=== PATIENT | male | born 1970 | race Asian ===

== ENCOUNTER 2017-12-16 11:30 | Day surgery (SDC) | payer MEDICAID ==
[~2017-12-16] VITALS: Ht 157.5 cm; Wt 77.1 kg
[2017-12-16] MEDS ORDERED: BALANCED SALT IRRIG SOLN COMB2 500ML OP NR (12:00)
[2017-12-16] MEDS ORDERED: PHENYLEPHRINE HCL 10% OPHTH DROPS 5ML RIGHTEYE ONE (12:20)
[2017-12-16] MEDS ORDERED: TROPICAMIDE 1% OPHTH DROPS 15ML RIGHTEYE ONE (12:20)
[2017-12-16] MEDS ORDERED: CYCLOPENTOLATE HCL 1% OPHTH DROPS 2ML RIGHTEYE ONE (12:20)
[2017-12-16] MEDS ORDERED: SODIUM CHLORIDE 0.9% 1,000 ML IV SCH (13:15)
[2017-12-16] MEDS ORDERED: MIDAZOLAM HCL 2 MG/2 ML VIAL ONE (13:55)
[2017-12-16] MEDS ORDERED: PROPOFOL 200MG/20ML VIAL IV ONE (13:55)
[2017-12-16] MEDS ORDERED: LIDOCAINE HCL/PF 1% 10 MG/ML 5ML VIAL ONE (14:02)
[2017-12-16] MEDS ORDERED: SUCCINYLCHOLINE CHLORIDE 200MG/10ML VIAL IV ONE (14:03)
[2017-12-16] MEDS ORDERED: SODIUM CHLORIDE 0.9% 1,000 ML IV ONE (14:12)
[2017-12-16] MEDS ORDERED: ONDANSETRON HCL 4MG/2ML INJ IV PRN (14:15)
[2017-12-16] MEDS ORDERED: HYDROMORPHONE HCL/PF 2MG/ML CPJ IV PRN (14:15)
[2017-12-16] MEDS ORDERED: IBUPROFEN 600MG TABLET PO SCH (14:15)
[2017-12-16] MEDS ORDERED: HYALURONATE SODIUM 14 MG/ML 0.85ML SYRINGE IO ONE (15:12)
== END 2017-12-16 16:00 | disposition home or self-care (01) ==
LOC: OR 11:30
PROVIDERS: ATTEND Ophthalmology
DX: H25.011 Cortical age-related cataract, right eye (principal); I10 Essential (primary) hypertension; E78.00 Pure hypercholesterolemia, unspecified; E11.9 Type 2 diabetes mellitus without complications; Z79.899 Other long term (current) drug therapy; Z98.890 Other specified postprocedural states
CPT/HCPCS: 66984; 82962; J0330; J2250; J3490; J7030; V2632; J2704